=== PATIENT | female | born 1940 | race African-American/Black ===

== ENCOUNTER → 2018-10-28 | Day surgery (SDC) | payer MEDICARE, OTHER ==
[2018-10-26 15:01] LABS: Basophils # (auto) 0 uL; Eosinophils # (auto) 0.1 uL; Hemoglobin 12.4 g/dL (12.2-16.2); Lymphocytes # (auto) 1.9 uL; Monocytes % (auto) 7.1 % (0.0-12.0); Neutrophils # (auto) 2.5 uL; Nucleated Red Blood Cells % 0.1 %; Red Cell Distribution Width 17.1 % (11.8-14.3)
[2018-10-26 15:06] LABS: Basophils % (auto) 0.8 % (0.0-2.0); Eosinophils % (auto) 1.9 % (0.0-7.0); Hematocrit 38.9 % (36.0-46.0); Lymphocytes % (auto) 39.2 % (10.0-50.0); Mean Corpuscular Hemoglobin 26.5 pg (28.0-32.0); Mean Corpuscular Hgb Conc. 31.8 g/dL (32.0-36.0); Mean Corpuscular Volume 83.3 fL (80.0-100.0); Monocytes # (auto) 0.4 uL; Platelet Count (auto) 274 10^3/uL (140-450); Red Blood Cells 4.67 10^6/uL (4.0-5.20)
[2018-10-26 15:10] LABS: Urine Bacteria NONE SEEN /hpf (None Seen); Urine Blood Negative /uL (Negative); Urine Specific Gravity 1.018 (1.001-1.035); Urine WBC 2 /hpf (0 - 5)
[2018-10-26 15:19] LABS: INR 0.9 (0.9-1.15); Partial Thromboplastin Time 24.6 sec (23.78-33.04); Prothrombin Time 9.7 sec (9.27-12.13)
[2018-10-26 15:20] LABS: Albumin 3.2 g/dL (3.4-5.0); BUN/Creatinine Ratio 20.9; Calcium 8.5 mg/dL (8.5-10.1); Potassium 3.8 mmol/L (3.5-5.1)
[2018-10-26 15:23] LABS: Bilirubin, Total 0.2 mg/dL (0.2-1.0); Total Protein 7.2 g/dL (6.4-8.2)
[~2018-10-28] VITALS: Ht 157.5 cm; Wt 65.8 kg
[~2018-10-28] MED LIST: ALBUAER3 IN; BUPIVACAINE 0.75% INJ 10ML MPV SDV IJ ONE; DEXAMETHASONE SOD PHOS 10MG/1ML VIAL INJ ONE; HYDROmorphone HCL 2 MG/ML VL IV PRN; KETOROLAC TROMETH 30 MG/ML 1ML VIAL IV ONE; KETOROLAC TROMETH 30 MG/ML 1ML VIAL ONE; LABETALOL HCL 5 MG/ML 4ML SYRINGE IV PRN; MEPERIDINE HCL (50 MG/ML) 1 ML VIAL ONE; MIDAZOLAM HCL 1MG/1ML-2 ML VIAL IV PRN; MIDAZOLAM HCL 1MG/1ML-2 ML VIAL ONE; MORPHINE SULFATE 4 MG/ML SYR/VIAL IV ONE; ONDANSETRON HCL 4 MG/2 ML VIAL IV ONE; PROPOFOL 10 MG/ML 20 ML IV ONE; ceFAZolin 1GM/50ML 50 ML IV ONE; ePHEDrine SULFATE 50 MG/ML AMP IV PRN; fentaNYL CITRATE 100 MCG/2 ML VL ONE; hydrALAZINE HCL 20 MG/ML VL IV PRN
[2018-10-28 10:43] VITALS: BP 155/58
== END | disposition home or self-care (01) ==
LOC: SUR 07:13
PROVIDERS: ATTEND Podiatrist Foot & Ankle Surgery
DX: M20.12 Hallux valgus (acquired), left foot (principal); M21.612 Bunion of left foot; L90.5 Scar conditions and fibrosis of skin; M20.42 Other hammer toe(s) (acquired), left foot; J45.909 Unspecified asthma, uncomplicated; I10 Essential (primary) hypertension; Z90.49 Acquired absence of other specified parts of digestive tract; Z98.890 Other specified postprocedural states; Z79.899 Other long term (current) drug therapy; Z98.84 Bariatric surgery status
CPT/HCPCS: 14040; 28285; 28296; 36415; 73620; 80053; 81001; 85025; 85610; 85730; C1713; C1769; J0360; J0690; J1100; J1885; J2175; J2250; J2704; J3010; J3490

== ENCOUNTER 2025-04-28 12:29 | Inpatient (IN) | payer OTHER ==
[~2025-04-28] VITALS: Ht 157.5 cm; Wt 69.4 kg
[~2025-04-28 12:29] MED LIST changes: -BUPIVACAINE 0.75% INJ 10ML MPV SDV IJ ONE; -DEXAMETHASONE SOD PHOS 10MG/1ML VIAL INJ ONE; -HYDROmorphone HCL 2 MG/ML VL IV PRN; -KETOROLAC TROMETH 30 MG/ML 1ML VIAL IV ONE; -KETOROLAC TROMETH 30 MG/ML 1ML VIAL ONE; -LABETALOL HCL 5 MG/ML 4ML SYRINGE IV PRN; -MEPERIDINE HCL (50 MG/ML) 1 ML VIAL ONE; -MIDAZOLAM HCL 1MG/1ML-2 ML VIAL IV PRN; -MIDAZOLAM HCL 1MG/1ML-2 ML VIAL ONE; -MORPHINE SULFATE 4 MG/ML SYR/VIAL IV ONE; -ONDANSETRON HCL 4 MG/2 ML VIAL IV ONE; -PROPOFOL 10 MG/ML 20 ML IV ONE; -ceFAZolin 1GM/50ML 50 ML IV ONE; -ePHEDrine SULFATE 50 MG/ML AMP IV PRN; -fentaNYL CITRATE 100 MCG/2 ML VL ONE; -hydrALAZINE HCL 20 MG/ML VL IV PRN
--- NOTE | 2025-04-28 13:00 | ED.PDOC ---
GI ASSESSMENT HPI Comments This is a 84 year old female presenting to the ED with chief complaint of abdominal pain. Patient reports that she has been experiencing 8/10 lower abdominal pain with associated diarrhea and headache for the past 2 weeks. Patient relays that she saw her PCP today and was advised to come to the ED for further evaluation. Patient denies any N/V, fever, chills, dizziness, chest pain, or SOB. Chief Complaint: Abdominal Pain Time Seen by MD: 12:58 Reviewed Notes: Nurses Notes, Medications, Allergies Allergies: Coded Allergies: NO KNOWN ALLERGIES (Unverified , 10/26/18) Home Meds Reported Medications Albuterol Sulfate (VENTOLIN MDI) 90 Mcg Ih, 2 PUFF IN PRN 10/26/18 Information Source: Patient Mode of Arrival: Ambulatory Timing: Weeks Duration: Since onset Prehospital treatment: None Quality: Aching Vomitus: None Stool: Watery Severity: Moderate Recent: None Recent Hx of: None Pain Location: Suprapubic Modifying Factors: Nothing Associated sign and symptoms: Diarrhea, Abdominal Pain Past Medical History PAST MEDICAL HISTORY: COPD, HTN Surgical History: Appendectomy, , Hernia Repair, Tonsillectomy, Tubal Ligation Surgical History (Other): Cataract surgery [employer] DES[employer] History: Denies all [employer] Hx Family History Family History: Reviewed,noncontributory to illness, Family hx of Kidney rasheed Social History Smoker: Non-Smoker Alcohol: Denies ETOH Use Drugs: Denies Drug Use Lives In: Home Constitutional: denies: chills, diaphoresis, fatigue, fever, malaise, sweats, weakness, others EENTM: denies: blurred vision, double vision, ear bleeding, ear discharge, ear drainage, ear pain, ear ringing, eye pain, eye redness, hearing loss, mouth pain, mouth swelling, nasal discharge, nose bleeding, nose congestion, nose pain, photophobia, tearing, throat pain, throat swelling, voice changes, others Respiratory: denies: cough, hemoptysis, orthopnea, SOB at rest, shortness of breath, SOB with excertion, stridor, wheezing, others Cardiovascular: denies: chest pain, dizzy spells, diaphoresis, Dyspnea on exertion, edema, irregular heart beat, left arm pain, lightheadedness, palpitations, PND, syncope, others Gastrointestinal: reports: abdominal pain, diarrhea; denies: abdomen distended, blood streaked bowels, constipated, dysphagia, difficulty swallowing, hematemesis, melena, nausea, poor appetite, poor fluid intake, rectal bleeding, rectal pain, vomiting, others Genitourinary: denies: abnormal vagina bleeding, burning, dyspareunia, dysuria, flank pain, frequency, hematuria, incontinence, pain, , vagina discharge, urgency, others Neurological: reports: headache; denies: dizziness, fainting, left sided numbness, left sided weakness, numbness, paresthesia, pre-existing deficit, right sided numbness, right sided weakness, seizure, speech problems, tingling, tremors, weakness, others Musculoskeletal: denies: back pain, gout, joint pain, joint swelling, muscle pain, muscle stiffness, neck pain, others Integumetry: denies: bruises, change in color, change in hair/nails, dryness, laceration, lesions, lumps, rash, wounds, others Allergic/Immunocompromised: denies: Difficulty Healing, Frequent Infections, Hives, Itching, others Hematologic/Lymphatic: denies: anemia, blood clots, easy bleeding, easy bruising, swollen glands, others Endocrine: denies: excessive hunger, excessive sweating, excessive thirst, excessive urination, flushing, intolerance to cold, intolerance to heat, unexplained weight gain, unexplained weight loss, others Psychiatric: denies: anxiety, bipolar disorder, depression, hopeless, panic disorder, schizophrenia, sleepless, suicidal, others All Other Systems: Reviewed and Negative Physical Exam General Appearance: Moderate Distress HEENT: Normal ENT Inspection, Pharynx Normal, TMs Normal Neck: Full Range of Motion, Non-Tender, Normal, Normal Inspection Respiratory: Chest Non-Tender, Lungs Clear, No Accessory Muscle Use, No Respiratory Distress, Normal Breath Sounds Cardiovascular: No Edema, No JVD, No Murmur, No Gallop, Normal Peripheral Pulses, Regular Rate/Rhythm Breast Exam: Deferred Gastrointestinal: No Organomegaly, Non Tender, No Pulsatile Mass, Normal Bowel Sounds, Soft Genitalia: Deferred Pelvic: Deferred Rectal: Deferred Extremities: No calf tenderness, Normal capillary refill, No pedal edema Musculoskeletal : Apperance: Normal Neurologic: Alert, crystalizer operator II-XII nml as Tested, No Motor Deficits, Normal Affect, Normal Mood, No Sensory Deficits Cerebellar Function: Normal Reflexes: Normal Skin: Dry, Normal Color, Warm Lymphatic: No Adenopathy EKG EKG : Pulse Rate (adult): 62 [place]: Normal Cardiac Rhythm: NSR Block: None Hypertrophy: LAE ST: Normal Was a procedure done? Was a procedure done?: No GI differential Dx Differential Diagnosis: Gastritis/PUD, Gastroenteritis, Inflammatory BD, UTI, Electrolyte Imbalance, Food Poisoning X-Ray, Labs, Meds, VS Vital Signs Date Time Temp Pulse Resp B/P (MAP) Pulse Ox O2 Delivery O2 Flow Rate FiO2 04/28/25 14:27 98.1 51 16 191/71 (111) 97 98.1 04/28/25 14:26 51 17 191/71 04/28/25 13:00 62 04/28/25 12:46 62 04/28/25 12:33 97.9 67 20 150/55 95 97.9 Lab Test 04/28/25 13:19 Range/Units White Blood Count 5.1 4.4-10.8 10^3/uL Red Blood Count 4.53 4.0-5.20 10^6/uL Hemoglobin 12.2 12.2-16.2 g/dL Hematocrit 37.9 36.0-46.0 % Mean Corpuscular Volume 83.7 80.0-100.0 fL Mean Corpuscular Hemoglobin 26.8 L 28.0-32.0 pg Mean Corpuscular Hemoglobin Concent 32.1 32.0-36.0 g/dL Red Cell Distribution Width 16.8 H 11.8-14.3 % Platelet Count 276 140-450 10^3/uL Mean Platelet Volume 7.9 6.9-10.8 fL Neutrophils (%) (Auto) 60.1 37.0-80.0 % Lymphocytes (%) (Auto) 32.0 10.0-50.0 % Monocytes (%) (Auto) 5.5 0.0-12.0 % Eosinophils (%) (Auto) 1.6 0.0-7.0 % Basophils (%) (Auto) 0.8 0.0-2.0 % Neutrophils # (Auto) 3.1 1.6-8.6 10 ^3/uL Lymphocytes # (Auto) 1.6 0.4-5.4 10 ^3/uL Monocytes # (Auto) 0.3 0-1.3 10 ^3/uL Eosinophils # (Auto) 0.1 0-0.8 10 ^3/uL Basophils # (Auto) 0 0-0.2 10 ^3/uL Nucleated Red Blood Cells 0.0 % Sodium Level 139 136-145 mmol/L Potassium Level 3.6 3.5-5.1 mmol/L Chloride Level 105 98-107 mmol/L Carbon Dioxide Level 24 20-31 mmol/L Anion Gap 10 5-15 Blood Urea Nitrogen 10 9-23 mg/dL Creatinine 0.90 0.550-1.02 mg/dL Glomerular Filtration Rate Calc 64 >90 mL/min BUN/Creatinine Ratio 11.1 10.0-20.0 Serum Glucose 92 74-106 mg/dL Calcium Level 8.8 8.7-10.4 mg/dL Total Bilirubin 0.3 0.2-1.0 mg/dL Aspartate Amino Transferase (AST) 45 H 13-40 U/L Alanine Aminotransferase (ALT) 47 H 7-40 U/L Alkaline Phosphatase 167 H 46-116 U/L Total Protein 6.9 5.7-8.2 g/dL Albumin 4.1 3.2-4.8 g/dL Lipase 31 12-53 U/L Current Medications Medications (Trade) Dose Ordered Sig/Lito Route Start Time Stop Time Status Last Admin Ondansetron HCl (Zofran) 4 mg ONCE ONCE IV 04/28/25 13:00 04/28/25 13:01 DC 04/28/25 14:26 Morphine Sulfate 2 mg ONCE ONCE IV 04/28/25 13:00 04/28/25 13:01 DC 04/28/25 14:26 Sodium Chloride 500 ml @ 500 mls/hr Q1H ONCE IVB 04/28/25 13:00 04/28/25 13:59 DC 04/28/25 14:26 IV Hep-Lock was established The patient was given normal saline at 500 cc bolus. The patient was given Zofran 4 mg IV push for the nausea The patient was given morphine 2 mg IV push for the pain The patient's CBC is within normal limits The chemistry panel is within normal limits The liver enzymes are slightly elevated The patient is being admitted at this time. The CAT scan of the abdomen and pelvis shows: IMPRESSION: 1. No CT evidence of an acute abdominal/pelvic process. 2. Constipation. 3. Trace left pleural effusion. Small sliding hiatal hernia. Images Reviewed?: Images reviewed and evaluated by me Time of 1ST Reevaluation: 18:37 Reevaluation 1ST: Unchanged Patient Education/Counseling: Diagnosis, Treatment, Prognosis Family Education/Counseling: No Family Present SEPSIS Sepsis Screen Date sepsis recognized/suspect: Apr 28, 2025 Time Sepsis recognized/suspect: 1236 Recent Procedure: No On Antibiotic Therapy: No Respiratory Rate >20: No Heart Rate >90: No Temp<36 C (96.8 F) or >38.3 C: No SBP <90 or MAP <65 mmHG: No New Acute Mental Status Change: No Is the patient on CPAP, BIPAP,: No Physician Orders Urinalysis (04/28/25 12:57) Ct Ab Pel Wo Con-No Oral Or Iv (04/28/25 12:57) Heplock Iv (04/28/25 12:57) Asw Specialist (04/28/25 12:57) Blood Pressure (04/28/25 12:57) Pulse Oximetry (04/28/25 12:57) Vital Signs Date Time Temp Pulse Resp B/P (MAP) Pulse Ox O2 Delivery O2 Flow Rate FiO2 04/28/25 14:27 98.1 51 16 191/71 (111) 97 98.1 04/28/25 14:26 51 17 191/71 04/28/25 13:00 62 04/28/25 12:46 62 04/28/25 12:33 97.9 67 20 150/55 95 97.9 Laboratory Tests Test 04/28/25 13:19 White Blood Count 5.1 10^3/uL (4.4-10.8) Medications Medications Dose Ordered Sig/Lito Route Start Time Stop Time Status Last Admin Dose Admin Morphine Sulfate 2 mg ONCE ONCE IV 04/28/25 13:00 04/28/25 13:01 DC 04/28/25 14:26 Ondansetron HCl 4 mg ONCE ONCE IV 04/28/25 13:00 04/28/25 13:01 DC 04/28/25 14:26 Sodium Chloride 500 ml @ 500 mls/hr Q1H ONCE IVB 04/28/25 13:00 04/28/25 13:59 DC 04/28/25 14:26 Departure 1 Departure Time of Disposition: 17:49 Impression: Primary Impression: Intractable abdominal pain Disposition: 09 ADMITTED INPATIENT Admit to: Med Surg Condition: Fair Critical Care Note Critical Care Time?: No Stability Stability form required: Yes Unstable for transfer: ED Physician Assesment (Clinical assesment) Heart Score Heart Score: Heart Score Response (Comments) Value History N/A 0 EKG N/A 0 Age N/A 0 Risk Factors N/A 0 Troponin N/A 0 Total 0 I personally scribed for YIN NÚÑEZ MD ([email or web address]) on 04/28/25 at 13:00. Electronically submitted by Fortunato Cesar ([email or web address]). I personally scribed for YIN NÚÑEZ MD ([email or web address]) on 04/28/25 at 13:00. Electronically submitted by Fortunato Cesar ([email or web address]). YIN NÚÑEZ MD Apr 28, 2025 13:00
[2025-04-28 13:36] LABS: Hematocrit 37.9 % (36.0-46.0); Hemoglobin 12.2 g/dL (12.2-16.2); Mean Corpuscular Hemoglobin 26.8 pg (28.0-32.0); Mean Corpuscular Volume 83.7 fL (80.0-100.0); Nucleated Red Blood Cells % 0.0 %
[2025-04-28 13:53] LABS: Alanine Aminotransferase 47 U/L (7-40); Albumin 4.1 g/dL (3.2-4.8); Alkaline Phosphatase 167 U/L (46-116); Anion Gap 10 (5-15); BUN/Creatinine Ratio 11.1 (10.0-20.0); Blood Urea Nitrogen 10 mg/dL (9-23); Calcium 8.8 mg/dL (8.7-10.4); Carbon Dioxide 24 mmol/L (20-31); Chloride 105 mmol/L (98-107); Glucose 92 mg/dL (74-106); Potassium 3.6 mmol/L (3.5-5.1); Sodium 139 mmol/L (136-145); Total Protein 6.9 g/dL (5.7-8.2)
[2025-04-28 13:54] LABS: Bilirubin, Total 0.3 mg/dL (0.2-1.0)
--- NOTE | 2025-04-28 14:14 | DVH ---
EXAM: CT CT AB PEL WO CON-NO ORAL OR IV INDICATION: pain TECHNIQUE: Volumetric multidetector CT images of the abdomen and pelvis were obtained without contras t. All CT scans at this facility use dose modulation, iterative reconstruction, and/or weight based d osing when appropriate to reduce radiation dose to as low as reasonably achievable. COMPARISON: None FINDINGS: [LOWER CHEST]: Trace left pleural effusion. The cardiac size is normal without pericardial effusion. [LIVER]: Normal hepatic size without suspicious focal lesion. [GALLBLADDER AND BILIARY TREE]: Surgically absent. [SPLEEN]: Unremarkable. [PANCREAS]: Unremarkable. [ADRENAL GLANDS]: Unremarkable [KIDNEYS]: No hydronephrosis. No nephroureterolithiasis. 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 No imaging follow-up required. [BLADDER]: Unremarkable for the degree distention. [REPRODUCTIVE ORGANS]: Unremarkable. [BOWEL/MESENTERY]: Small sliding hiatal hernia with postoperative changes to the stomach No CT eviden ce of bowel obstruction. Multiple loops of bowel adhered to the anterior abdominal wall, which may be related to adhesions. Correlate for constipation given mild stool burden. [ASCITES]: Absent [LYMPHADENOPATHY]: No pathologically enlarged lymph nodes by CT size criteria [VASCULATURE]: No aneurysmal dilatation. [ABDOMINAL WALL]: Postoperative changes to the anterior abdominal wall [MUSCULOSKELETAL]: No acute fracture or aggressive focal osseous lesion. Multifocal degenerative pedro ge of the visualized spine. IMPRESSION: 1. No CT evidence of an acute abdominal/pelvic process. 2. Constipation. 3. Trace left pleural effusion. Small sliding hiatal hernia.
[2025-04-28] MEDS: ONDANSETRON HCL 4 MG/2 ML VIAL IV ONE ×2 (14:26→20:44)
[2025-04-28] MEDS: SODIUM CHLORIDE 0.9% 500 ML IVB ONE (14:26)
[2025-04-28] MEDS: MORPHINE SULFATE 4 MG/ML SYR/VIAL IV ONE (14:26)
[2025-04-28 14:35] LABS: Lipase 31 U/L (12-53)
--- NOTE | 2025-04-28 16:15 | ECG ---
[facility] Test Date: 2025-04-28 Test Time: 12:46:49 Pat Name: ROSI INTERIANO Department: ED Room: 0249T Gender: F Director Of Orthopedics: DR DIEGO: 1940 Requested By: YIN NÚÑEZ Order Number: [id number] Reading MD: Campbell Albrecht Measurements Intervals [place] Rate: 62 P: 56 DE: 147 QRS: 16 QRSD: 101 T: 59 QT: 477 QTc: 485 Interpretive Statements Sinus rhythm Probable left atrial enlargement Abnormal R-wave progression, early transition Electronically Signed On 05-03-2025 19:17:35 PDT by Campbell Albrecht Please click the below link to view image of tracing.
[2025-04-28] MEDS: MORPHINE SULFATE INJ 2 MG/ml SYRG IV ONE (20:46)
[2025-04-28 20:52] VITALS: PULSE 50; RESP 16; O2SAT 96
[2025-04-28 21:20] LABS: Urine Protein, UAD Negative (Negative)
[2025-04-29] VITALS (8 sets, daily range): BP systolic 109–150; BP diastolic 49–67; PULSE 44–63; RESP 16–18; TEMP 97.1–98.7; O2SAT 95–98
[2025-04-29] MEDS ORDERED: NITROGLYCERIN 0.4 MG SL TAB SL PRN (00:30)
[2025-04-29] MEDS ORDERED: HYDROcodone-ACET 5/325MG TAB PO PRN (00:30)
[2025-04-29] MEDS ORDERED: MORPHINE SULFATE INJ 2 MG/ml SYRG IV PRN ×2 (00:30)
[2025-04-29] MEDS ORDERED: ONDANSETRON HCL 4 MG/2 ML VIAL IV PRN (00:30)
[2025-04-29] MEDS ORDERED: DOCUSATE SOD 100 MG CAP PO PRN (00:30)
[2025-04-29] MEDS ORDERED: hydrALAZINE HCL 20 MG/ML VL IV PRN (00:30)
--- NOTE | 2025-04-29 00:39 | DVHHP2 ---
History of Present Illness Reason for Visit: Acute abdominal pain History of Present Illness The patient is a 84-year-old female with past medical history of COPD and hypertension who presented to [facility] ED with complaint of acute abdominal pain for the past 2 weeks. Patient reports she has been experiencing l ower abdominal pain associated with diarrhea, headache, rating pain 8/10 numeric scale. Patient states that she saw her PCP today and was advised to come to the ED for further evaluation. Patient was seen and evaluated in the ED, laboratory data shows WBC 5.1, platelets 276, sodium 139, potassium 3.6, BUN 10, creatinine 0.90, glucose 92, calcium 8.8, lipase 31, AST 45, ALT 47, blood pressure 191/71 trending down to 139/55, heart rate 50, temperature 97.6 F, O2 saturation 96% on room air. Urinalysis positive for urinary tract infection. Abdomen/pelvis CT revealing constipation, no evidence of acute abdominal/pelvic process. Please s ee medication orders section in the computer. On my assessment, patient denied chest pain, no headache, no dizziness, no diaphoresis, abdominal pain at this moment, no nausea, no vomiting, no fever, no chills. Patient was admitted for further evaluation and medical management. Past Medical History COPD, HTN Past Surgical History Appendectomy, , Hernia Repair, Tonsillectomy, Tubal Ligation, Cataract surgery Family History Reviewed, noncontributory to the management of this case. Past Social History The patient lives at home, denies smoking, alcohol or illicit drugs abuse. Review of Systems Constitutional: Yes: Weakness; No: Fever, Chills, Sweats, Malaise, Other Eyes: No: Pain, Vision change, Conjunctivae inflammation, Eyelid inflammation, Other, Redness ENT: No: Ear pain, Ear discharge, Nose pain, Nose discharge, Nose congestion, Mouth pain, Mouth swelling, Throat pain, Throat swelling, Other Respiratory: No: Cough, Dry, Shortness of breath, SOB with excertion, Wheezing, Hemoptysis, Pleuritic Pain, Sputum, Wheezing, Other Cardiovascular: No: Chest Pain, Palpitations, Orthopnea, Paroxysmal Noc. Dyspnea, Edema, Lt Headedness, Other Gastrointestinal: Abdominal Pain, Diarrhea, Constipation; No: Nausea, Vomiting, Melena, Hematochezia, Other Genitourinary: No Dysuria, No Frequency, No Incontinence, No Hematuria, No Retention, No Other Musculoskeletal: No: other, neck pain, shoulder pain, arm pain, back pain, hand pain, leg pain, foot pain Skin: No: Rash, Lesions, Jaundice, Bruising, Other Neurological: No: Weakness, Numbness, Incoordination, Change in speech, Confusion, Seizures, Other Allergies: Coded Allergies: NO KNOWN ALLERGIES (Unverified , 10/26/18) Exam Vital Signs Vital Signs Date Time Temp Pulse Resp B/P (MAP) Pulse Ox O2 Delivery O2 Flow Rate FiO2 04/28/25 20:52 50 16 96 Room Air* 0 21 04/28/25 20:46 175/74 04/28/25 20:42 97.6 97.6 General Appearance: Alert, Oriented X3, Cooperative, No acute distress HEENT: Atraumatic, PERRLA, EOMI, Mucous membr. moist/pink Respiratory: Clear to auscultation, Normal air movement Cardiovascular: Regular rate, Normal S1, Normal S2, No murmurs Abdominal: Normal bowel sounds, Soft, No hepatospenomegaly, No masses, Other (Reports tenderness) Extremities: No clubbing, No cyanosis, No edema, Normal pulses, No tenderness/swelling Skin: No rashes, No breakdown, No significant lesion Neuro: Normal speech, Normal tone, Sensation intact, Cranial nerves 3-12 NL, Reflexes 2+, Other (Generalized weakness) Psych/Mental Status: Mental status NL, Mood NL Labs/Xrays Labs Test 04/28/25 20:15 04/28/25 13:19 Range/Units Urine Color Light-yellow Yellow Urine Clarity Clear Clear Urine pH 5.0 5.0-9.0 Urine Specific [place] 1.012 1.001-1.035 Urine Protein Negative Negative Urine Ketones Negative Negative Urine Blood Negative Negative /uL Urine Nitrite Negative Negative Urine Bilirubin Negative Negative Urine Urobilinogen Normal Negative mg/dL Urine Leukocyte Esterase 2+ Negative /uL Urine RBC 1 0 - 4 /hpf Urine Microscopic WBC 13 H 0-5 /HPF Urine Squamous Epithelial Cells Few <5 /hpf Urine Bacteria None seen None Seen /hpf Urine Glucose Normal Normal mg/dL White Blood Count 5.1 4.4-10.8 10^3/uL Red Blood Count 4.53 4.0-5.20 10^6/uL Hemoglobin 12.2 12.2-16.2 g/dL Hematocrit 37.9 36.0-46.0 % Mean Corpuscular Volume 83.7 80.0-100.0 fL Mean Corpuscular Hemoglobin 26.8 L 28.0-32.0 pg Mean Corpuscular Hemoglobin Concent 32.1 32.0-36.0 g/dL Red Cell Distribution Width 16.8 H 11.8-14.3 % Platelet Count 276 140-450 10^3/uL Mean Platelet Volume 7.9 6.9-10.8 fL Neutrophils (%) (Auto) 60.1 37.0-80.0 % Lymphocytes (%) (Auto) 32.0 10.0-50.0 % Monocytes (%) (Auto) 5.5 0.0-12.0 % Eosinophils (%) (Auto) 1.6 0.0-7.0 % Basophils (%) (Auto) 0.8 0.0-2.0 % Neutrophils # (Auto) 3.1 1.6-8.6 10 ^3/uL Lymphocytes # (Auto) 1.6 0.4-5.4 10 ^3/uL Monocytes # (Auto) 0.3 0-1.3 10 ^3/uL Eosinophils # (Auto) 0.1 0-0.8 10 ^3/uL Basophils # (Auto) 0 0-0.2 10 ^3/uL Nucleated Red Blood Cells 0.0 % Sodium Level 139 136-145 mmol/L Potassium Level 3.6 3.5-5.1 mmol/L Chloride Level 105 98-107 mmol/L Carbon Dioxide Level 24 20-31 mmol/L Anion Gap 10 5-15 Blood Urea Nitrogen 10 9-23 mg/dL Creatinine 0.90 0.550-1.02 mg/dL Glomerular Filtration Rate Calc 64 >90 mL/min BUN/Creatinine Ratio 11.1 10.0-20.0 Serum Glucose 92 74-106 mg/dL Calcium Level 8.8 8.7-10.4 mg/dL Total Bilirubin 0.3 0.2-1.0 mg/dL Aspartate Amino Transferase (AST) 45 H 13-40 U/L Alanine Aminotransferase (ALT) 47 H 7-40 U/L Alkaline Phosphatase 167 H 46-116 U/L Total Protein 6.9 5.7-8.2 g/dL Albumin 4.1 3.2-4.8 g/dL Lipase 31 12-53 U/L PATIENT: ROSI INTERIANO ACCT: [id number] UNIT: [id number] : 1940 LOC: ER ROOM / BED: / AGE / SEX: 84 / F ADM STATUS: REG ER SERVICE 1257 ORDERING PHYSICIAN: YIN NÚÑEZ MD PROCEDURE(s): ABPL - CT AB PEL WO CON-NO ORAL OR IV REASON: pain ORDER NUMBER(s): [id number], ACCESSION NUMBER(s): [id number] EXAM: CT CT AB PEL WO CON-NO ORAL OR IV INDICATION: pain TECHNIQUE: Volumetric multidetector CT images of the abdomen and pelvis were obtained without contrast. All CT scans at this facility use dose modulation, iterative reconstruction, and/or weight based dosing when appropriate to reduce radiation dose to as low as reasonably achievable. COMPARISON: None FINDINGS: [LOWER CHEST]: Trace left pleural effusion. The cardiac size is normal without pericardial effusion. [LIVER]: Normal hepatic size without suspicious focal lesion. [GALLBLADDER AND BILIARY TREE]: Surgically absent. [SPLEEN]: Unremarkable. [PANCREAS]: Unremarkable. [ADRENAL GLANDS]: Unremarkable [KIDNEYS]: No hydronephrosis. No nephro-ureterolithiasis. Benign appearing renal cysts, compatible with Bosniak type I cyst. No imaging follow-up required. [BLADDER]: Unremarkable for the degree distention. [REPRODUCTIVE ORGANS]: Unremarkable. [BOWEL/MESENTERY]: Small sliding hiatal hernia with postoperative changes to the stomach No CT evidence of bowel obstruction. Multiple loops of bowel adhered to the anterior abdominal wall, which may be related to adhesions. Correlate for constipation given mild stool burden. [ASCITES]: Absent [LYMPHADENOPATHY]: No pathologically enlarged lymph nodes by CT size criteria [VASCULATURE]: No aneurysmal dilatation. [ABDOMINAL WALL]: Postoperative changes to the anterior abdominal wall [MUSCULOSKELETAL]: No acute fracture or aggressive focal osseous lesion. Multifocal degenerative change of the visualized spine. IMPRESSION: 1. No CT evidence of an acute abdominal/pelvic process. 2. Constipation. 3. Trace left pleural effusion. Small sliding hiatal hernia. SEPSIS Sepsis Screen Date sepsis recognized/suspect: Apr 28, 2025 Time Sepsis recognized/suspect: 123 Recent Procedure: No On Antibiotic Therapy: No Respiratory Rate >20: No Heart Rate >90: No Temp<36 C (96.8 F) or >38.3 C: No SBP <90 or MAP <65 mmHG: No New Acute Mental Status Change: No Is the patient on CPAP, BIPAP,: No Physician Orders Complete Blood Count (04/29/25 04:00) Comprehensive Metabolic Panel (04/29/25 04:00) Pantoprazole (Protonix) (04/29/25 10:00) Pantoprazole (Protonix) (04/29/25 00:30) Ibuprofen Tablet (Motrin Tablet) (04/29/25 00:30) Ceftriaxone Ivpb Rocephin (04/29/25 09:00) Ceftriaxone Ivpb Rocephin (04/29/25:30) Urine Bacterial Culture (04/29/25:30) Amlodipine Tablet (Norvasc Tablet) (04/29/25 10:00) Hydralazine Injection (Apresoline Inject (04/29/25 00:30) Admit (04/29/25 00:30) Allergies (04/29/25 00:30) Code Status (04/29/25 00:30) 0.9% Ns 1000 Ml (04/29/25 00:30) Oxygen Per Hour (04/29/25 00:30) Hydrocodone-Acet 5/325mg Tab (Staples 5/32 (04/29/25 00:30) Ondansetron Hcl (Zofran) (04/29/25 00:30) Docusate Sodium Capsule (Colace Capsule) (04/29/25 00:30) Complete Blood Count (04/30/25 04:00) Comprehensive Metabolic Panel (04/30/25 04:00) Condition: Serious (04/29/25 00:30) Clear Liq Diet (04/29/25 Breakfast) Bedrest With Bathroom Privileg (04/29/25:) Morphine Sulfate Injection (04/29/25 00:30) Sequential Compression Device (04/29/25 ) Nitroglycerin Sublingual (Ntrostat Subli (04/29/25 00:30) Morphine Sulfate Injection (04/29/25 00:30) Stat Ekg For Chest Pain (04/29/25 00:30) Notify Md Of Changes From Base (04/29/25 00:30) Grader Green Meat For 24 Hours (04/29/25 00:30) Emergency Dysrhythmia Protocol (04/29/25 00:30) Rhythm Strips Once Every Shift (04/29/25 00:30) Oxygen By Nasal Cannula (04/29/25 00:30) Vital Signs Date Time Temp Pulse Resp B/P (MAP) Pulse Ox O2 Delivery O2 Flow Rate FiO2 04/28/25 20:52 50 16 96 Room Air* 0 21 04/28/25 20:46 50 16 175/74 04/28/25 20:42 97.6 50 16 175/74 (107) 99 97.6 04/28/25 20:41 97.6 50 17 175/74 (107) 99 97.6 Laboratory Tests Test 04/28/25 13:19 White Blood Count 5.1 10^3/uL (4.4-10.8) Medications Medications Dose Ordered Sig/Lito Route Start Time Stop Time Status Last Admin Dose Admin Morphine Sulfate 2 mg ONCE ONCE IV 04/28/25 13:00 04/28/25 13:01 DC 04/28/25 14:26 2 MG Morphine Sulfate 2 mg ONCE ONCE IV 04/28/25 20:45 04/28/25 20:46 DC 04/28/25 20:46 2 MG Ondansetron HCl 4 mg ONCE ONCE IV 04/28/25 13:00 04/28/25 13:01 DC 04/28/25 14:26 4 MG Ondansetron HCl 4 mg ONCE ONCE IV 04/28/25 20:45 04/28/25 20:46 DC 04/28/25 20:44 4 MG Sodium Chloride 500 ml @ 500 mls/hr Q1H ONCE IVB 04/28/25 13:00 04/28/25 13:59 DC 04/28/25 14:26 500 MLS/HR Assessment/Plan Assessment/Plan Intractable abdominal pain Elevated liver enzymes Bradycardia Hypertensive urgency Urinary tract infection Generalized weakness Plan 1. Admit to telemetry units 2. Breathing treatment 3. Pain control management 4. IV antibiotic management 5. Management of fluids and electrolytes 6. Consultation for hospitalist 7. Diagnostic test head CT 8. DVT prophylaxis-on SCDs 9. Repeat labs CBC, CMP in a.m. 10. Home medication reviewed and reconciled 11. Continue with current medical management 12. Treatment plan discussed with patient and RN. Patient verbalized understanding. Plan discussed with: Patient, Other (RN) My Orders Orders - SUSAN HAHN DNP Procedure Category Date Status Time Complete Blood Count LAB 04/29/25 Transmitted 04:00 Comprehensive LAB 04/29/25 Transmitted Metabolic Panel 04:00 Pantoprazole PHA 04/29/25 Transmitted (Protonix) 10:00 Pantoprazole PHA 04/29/25 Transmitted (Protonix) 00:30 Ibuprofen Tablet PHA 04/29/25 Transmitted (Motrin Tablet) 00:30 Ceftriaxone Ivpb PHA 04/29/25 Transmitted Rocephin 09:00 Ceftriaxone Ivpb PHA 04/29/25 Transmitted Rocephin 00:30 Urine Bacterial YESIKA 04/29/25 Transmitted Culture 00:30 Amlodipine Tablet PHA 04/29/25 Transmitted (Norvasc Tablet) 10:00 Hydralazine Injection PHA 04/29/25 Transmitted (Apresoline Inject 00:30 Admit ADMIT 04/29/25 Transmitted 00:30 Allergies KEEGAN 04/29/25 Transmitted 00:30 Code Status CODE 04/29/25 Transmitted 00:30 0.9% Ns 1000 Ml PHA 04/29/25 Transmitted 00:30 Oxygen Per Hour RT 04/29/25 Transmitted 00:30 Hydrocodone-Acet PHA 04/29/25 Transmitted 5/325mg Tab (Staples 00:30 Ondansetron Hcl PHA 04/29/25 Transmitted (Zofran) 00:30 Docusate Sodium PHA 04/29/25 Transmitted Capsule (Colace 00:30 Complete Blood Count LAB 04/30/25 Verified 04:00 Comprehensive LAB 04/30/25 Verified Metabolic Panel 04:00 Condition: Serious KEEGAN 04/29/25 Transmitted 00:30 Clear Liq Diet DIET 04/29/25 Verified Breakfast Bedrest With Bathroom KEEGAN 04/29/25 Verified Privileg 00:30 Morphine Sulfate PHA 04/29/25 Verified Injection 00:30 Sequential KEEGAN 04/29/25 Verified Compression Device Nitroglycerin PHA 04/29/25 Verified Sublingual (Ntrostat 00:30 Morphine Sulfate PHA 04/29/25 Verified Injection 00:30 Stat Ekg For Chest KEEGAN 04/29/25 Verified Pain 00:30 Notify Md Of Changes KEEGAN 04/29/25 Verified From Base 00:30 Grader Green Meat For KEEGAN 04/29/25 Verified 24 Hours 00:30 Emergency Dysrhythmia [facility] 04/29/25 Verified Protocol 00:30 Rhythm Strips Once [facility] 04/29/25 Verified Every Shift 00:30 Oxygen By Nasal RT 04/29/25 Verified Cannula 00:30 Problem List: (1) Intractable abdominal pain (2) Elevated liver enzymes (3) Bradycardia (4) Hypertensive urgency (5) Urinary tract infection (6) Generalized weakness Date of Service: Apr 29, 2025 Billing Provider: SUSAN HAHN DNP Common Visit Codes: [id number] INP/OBS CARE (HIGH) SUSAN HAHN DNP Apr 29, 2025 00:39
[2025-04-29] MEDS: SODIUM CHLORIDE 0.9% 1,000 ML IV SCH (02:40)
[2025-04-29] MEDS: PANTOPRAZOLE 40 MG/10 ML VIAL INJ IV ONE (02:40)
[2025-04-29] MEDS: IBUPROFEN 600 MG TAB PO PRN (06:33)
[2025-04-29] MEDS: PANTOPRAZOLE 40 MG/10 ML VIAL INJ IV SCH (10:04)
[2025-04-29 10:36] LABS: Hematocrit 37.2 % (36.0-46.0); Hemoglobin 11.8 g/dL (12.2-16.2); Mean Corpuscular Hemoglobin 26.9 pg (28.0-32.0); Mean Corpuscular Volume 85.2 fL (80.0-100.0); Nucleated Red Blood Cells % 0.1 %
[2025-04-29 10:57] LABS: Alanine Aminotransferase 40 U/L (7-40); Albumin 3.7 g/dL (3.2-4.8); Anion Gap 12 (5-15); BUN/Creatinine Ratio 13.0 (10.0-20.0); Bilirubin, Total 0.3 mg/dL (0.2-1.0); Blood Urea Nitrogen 12 mg/dL (9-23); Calcium 8.8 mg/dL (8.7-10.4); Carbon Dioxide 22 mmol/L (20-31); Chloride 107 mmol/L (98-107); Potassium 4.2 mmol/L (3.5-5.1); Sodium 141 mmol/L (136-145); Total Protein 6.0 g/dL (5.7-8.2)
[2025-04-29 10:59] LABS: Alkaline Phosphatase 159 U/L (46-116); Glucose 124 mg/dL (74-106)
--- NOTE | 2025-04-29 12:41 | DVHPN2 ---
Reviewed: Care Plan, H&P, Labs, Medications, Previous Orders, Radiology Changes from previous H/P or p: No Changes Eyes: No Pain, No Vision change, No Conjunctivae inflammation, No Eyelid inflammation, No Other, No Redness ENT: No Ear pain, No Ear discharge, No Nose pain, No Nose discharge, No Nose congestion, No Mouth pain, No Mouth swelling, No Throat pain, No Throat swelling, No Other Cardiovascular: No Chest Pain, No Palpitations, No Orthopnea, No Paroxysmal Noc. Dyspnea, No Edema, No Lt Headedness, No Other Respiratory: No Cough, No Dry, No Shortness of breath, No SOB with excertion, No Wheezing, No Hemoptysis, No Pleuritic Pain, No Sputum, No Other Gastrointestinal: No Nausea, No Vomiting; Abdominal Pain, Diarrhea, C onstipation; No Melena, No Hematochezia, No Other Genitourinary: No Dysuria, No Frequency, No Incontinence, No Hematuria, No Retention, No Other Musculoskeletal: No other, No neck pain, No shoulder pain, No arm pain, No back pain, No hand pain, No leg pain, No foot pain Skin: No Rash, No Lesions, No Jaundice, No Bruising, No Other Objective Vitals Vital Signs Date Time Temp Pulse Resp B/P (MAP) Pulse Ox O2 Delivery O2 Flow Rate FiO2 04/29/25 10:04 140/67 04/29/25 09:00 97.5 60 16 96 97.5 04/29/25 08:00 Room Air* 0 21 Intake/Output Intake and Output 04/29/25 07:00 Intake Total 240 ml Balance 240 ml Intake Oral 240 ml # Voids 2 Medications Current Medications Medications Dose Ordered Sig/Lito Route Start Time Stop Time Status Last Admin Dose Admin Pantoprazole Sodium 40 mg DAILY IV 04/29/25 10:00 04/29/25 10:04 40 MG Ibuprofen 600 mg Q6HP PRN PO 04/29/25 00:30 04/29/25 06:33 600 MG Ceftriaxone Sodium 50 ml @ 100 mls/hr DAILY@09 IV 04/29/25 09:00 04/29/25 10:05 100 MLS/HR Amlodipine Besylate 5 mg DAILY PO 04/29/25 10:00 04/29/25 10:04 5 MG Hydralazine HCl 10 mg Q6HP PRN IV 04/29/25 00:30 Sodium Chloride 1,000 ml @ 60 mls/hr [id number] IV 04/29/25 00:30 04/29/25 02:40 60 MLS/HR Acetaminophen/ Hydrocodone Bitart 1 tab Q4HP PRN PO 04/29/25 00:30 Ondansetron HCl 4 mg Q4HP PRN IV 04/29/25 00:30 Docusate Sodium 100 mg BIDPRN PRN PO 04/29/25 00:30 Morphine Sulfate 2 mg Q4HPRN PRN IV 04/29/25 00:30 Nitroglycerin 0.4 mg Q5MINP PRN SL 04/29/25 00:30 Morphine Sulfate 2 mg Q30M PRN IV 04/29/25 00:30 Laboratory Results Laboratory Tests 04/29/25 09:50 Chemistry Test 04/28/25 13:19 04/29/25 09:50 Albumin 4.1 g/dL (3.2-4.8) 3.7 g/dL (3.2-4.8) Calcium Level 8.8 mg/dL (8.7-10.4) 8.8 mg/dL (8.7-10.4) Total Protein 6.9 g/dL (5.7-8.2) 6.0 g/dL (5.7-8.2) Lipid panel Test 04/28/25 13:19 Lipase 31 U/L (12-53) LFT Test 04/28/25 13:19 04/29/25 09:50 Alanine Aminotransferase (ALT) 47 U/L (7-40) H 40 U/L (7-40) Alkaline Phosphatase 167 U/L (46-116) H 159 U/L (46-116) H Aspartate Amino Transferase (AST) 45 U/L (13-40) H 35 U/L (13-40) Total Bilirubin 0.3 mg/dL (0.2-1.0) 0.3 mg/dL (0.2-1.0) Urinalysis Test 04/28/25 20:15 Urine Color Light-yellow (Yellow) Urine Clarity Clear (Clear) Urine pH 5.0 (5.0-9.0) Urine Specific [place] 1.012 (1.001-1.035) Urine Protein Negative (Negative) Urine Ketones Negative (Negative) Urine Blood Negative /uL (Negative) Urine Nitrite Negative (Negative) Urine Bilirubin Negative (Negative) Urine Urobilinogen Normal mg/dL (Negative) Urine Leukocyte Esterase 2+ /uL (Negative) Urine RBC 1 /hpf (0 - 4) Urine Microscopic WBC 13 /HPF (0-5) H Urine Squamous Epithelial Cells Few /hpf (<5) Urine Bacteria None seen /hpf (None Seen) Urine Glucose Normal mg/dL (Normal) Labs and/or images reviewed: Labs reviewed by me, Image(s) reviewed by me Assessment/Plan Assessment/Plan Intractable abdominal pain: CT abdomen pelvis without contrast negative labs normal Slightly elevated Elevated liver enzymes UTI: Urine cultures Rocephin Bradycardia Hypertensive urgency blood pressure medications Generalized weakness Plan discussed with: Patient Date of Service: Apr 29, 2025 Billing Provider: LIZBETH WELLS MD Common Visit Codes: [id number] INP/OBS CARE(HIGH) LIZBETH WELLS MD Apr 29, 2025 12:41
[2025-04-30 01:00] VITALS: BP 143/86; PULSE 56; RESP 16; TEMP 97.9; O2SAT 98
[2025-04-30 05:00] VITALS: BP 113/61; PULSE 56; RESP 15; TEMP 97.9; O2SAT 97
[2025-04-30 07:48] LABS: Hematocrit 36.4 % (36.0-46.0); Hemoglobin 11.9 g/dL (12.2-16.2); Mean Corpuscular Hemoglobin 26.9 pg (28.0-32.0); Mean Corpuscular Volume 82.2 fL (80.0-100.0); Nucleated Red Blood Cells % 0.1 %
[2025-04-30 08:00] VITALS: PULSE 52; PULSE 56; RESP 20; O2SAT 95
[2025-04-30 08:05] LABS: Alanine Aminotransferase 33 U/L (7-40); Anion Gap 10 (5-15); BUN/Creatinine Ratio 6.6 (10.0-20.0); Calcium 8.8 mg/dL (8.7-10.4); Carbon Dioxide 24 mmol/L (20-31); Glucose 84 mg/dL (74-106); Potassium 4.2 mmol/L (3.5-5.1); Sodium 144 mmol/L (136-145)
[2025-04-30 08:06] LABS: Total Protein 6.3 g/dL (5.7-8.2)
[2025-04-30 08:07] LABS: Albumin 3.7 g/dL (3.2-4.8)
[2025-04-30 08:10] LABS: Alkaline Phosphatase 157 U/L (46-116); Bilirubin, Total 0.2 mg/dL (0.2-1.0); Blood Urea Nitrogen 5 mg/dL (9-23); Chloride 110 mmol/L (98-107)
--- NOTE | 2025-04-30 08:39 | DVHPN2 ---
Reviewed: Care Plan, H&P, Labs, Medications, Previous Orders, Radiology Changes from previous H/P or p: No Changes Eyes: No Pain, No Vision change, No Conjunctivae inflammation, No Eyelid inflammation, No Other, No Redness ENT: No Ear pain, No Ear discharge, No Nose pain, No Nose discharge, No Nose congestion, No Mouth pain, No Mouth swelling, No Throat pain, No Throat swelling, No Other Cardiovascular: No Chest Pain, No Palpitations, No Orthopnea, No Paroxysmal Noc. Dyspnea, No Edema, No Lt Headedness, No Other Respiratory: No Cough, No Dry, No Shortness of breath, No SOB with excertion, No Wheezing, No Hemoptysis, No Pleuritic Pain, No Sputum, No Other Gastrointestinal: No Nausea, No Vomiting; Abdominal Pain, Diarrhea, C onstipation; No Melena, No Hematochezia, No Other Genitourinary: No Dysuria, No Frequency, No Incontinence, No Hematuria, No Retention, No Other Musculoskeletal: No other, No neck pain, No shoulder pain, No arm pain, No back pain, No hand pain, No leg pain, No foot pain Skin: No Rash, No Lesions, No Jaundice, No Bruising, No Other Objective Vitals Vital Signs Date Time Temp Pulse Resp B/P (MAP) Pulse Ox O2 Delivery O2 Flow Rate FiO2 04/30/25 05:00 97.9 56 15 113/61 (78) 97 97.9 04/29/25 20:00 Room Air* 0 21 Intake/Output Intake and Output 04/30/25 07:00 Intake Total 2810 ml Balance 2810 ml Intake Oral 1810 ml IV Total 1000 ml # Voids 9 Medications Current Medications Medications Dose Ordered Sig/Lito Route Start Time Stop Time Status Last Admin Dose Admin Pantoprazole Sodium 40 mg DAILY IV 04/29/25 10:00 04/29/25 10:04 40 MG Ibuprofen 600 mg Q6HP PRN PO 04/29/25 00:30 04/29/25 22:37 600 MG Ceftriaxone Sodium 50 ml @ 100 mls/hr DAILY@09 IV 04/29/25 09:00 04/29/25 10:05 100 MLS/HR Amlodipine Besylate 5 mg DAILY PO 04/29/25 10:00 04/29/25 10:04 5 MG Hydralazine HCl 10 mg Q6HP PRN IV 04/29/25 00:30 Sodium Chloride 1,000 ml @ 60 mls/hr [id number] IV 04/29/25 00:30 04/29/25 22:36 60 MLS/HR Acetaminophen/ Hydrocodone Bitart 1 tab Q4HP PRN PO 04/29/25 00:30 Ondansetron HCl 4 mg Q4HP PRN IV 04/29/25 00:30 Docusate Sodium 100 mg BIDPRN PRN PO 04/29/25 00:30 Morphine Sulfate 2 mg Q4HPRN PRN IV 04/29/25 00:30 Nitroglycerin 0.4 mg Q5MINP PRN SL 04/29/25 00:30 Morphine Sulfate 2 mg Q30M PRN IV 04/29/25 00:30 Laboratory Results Laboratory Tests 04/30/25 07:22 Chemistry Test 04/29/25 09:50 04/30/25 07:22 Albumin 3.7 g/dL (3.2-4.8) 3.7 g/dL (3.2-4.8) Calcium Level 8.8 mg/dL (8.7-10.4) 8.8 mg/dL (8.7-10.4) Total Protein 6.0 g/dL (5.7-8.2) 6.3 g/dL (5.7-8.2) LFT Test 04/29/25 09:50 04/30/25 07:22 Alanine Aminotransferase (ALT) 40 U/L (7-40) 33 U/L (7-40) Alkaline Phosphatase 159 U/L (46-116) H 157 U/L (46-116) H Aspartate Amino Transferase (AST) 35 U/L (13-40) 31 U/L (13-40) Total Bilirubin 0.3 mg/dL (0.2-1.0) 0.2 mg/dL (0.2-1.0) Urinalysis Test 04/28/25 20:15 Urine Color Light-yellow (Yellow) Urine Clarity Clear (Clear) Urine pH 5.0 (5.0-9.0) Urine Specific [place] 1.012 (1.001-1.035) Urine Protein Negative (Negative) Urine Ketones Negative (Negative) Urine Blood Negative /uL (Negative) Urine Nitrite Negative (Negative) Urine Bilirubin Negative (Negative) Urine Urobilinogen Normal mg/dL (Negative) Urine Leukocyte Esterase 2+ /uL (Negative) Urine RBC 1 /hpf (0 - 4) Urine Microscopic WBC 13 /HPF (0-5) H Urine Squamous Epithelial Cells Few /hpf (<5) Urine Bacteria None seen /hpf (None Seen) Urine Glucose Normal mg/dL (Normal) Labs and/or images reviewed: Labs reviewed by me, Image(s) reviewed by me Assessment/Plan Assessment/Plan Intractable abdominal pain: CT abdomen pelvis without contrast negative labs normal Slightly elevated Elevated liver enzymes UTI: Urine cultures Rocephin Bradycardia Hypertensive urgency blood pressure medications Generalized weakness Plan discussed with: Patient Date of Service: Apr 30, 2025 Billing Provider: LIZBETH WELLS MD Common Visit Codes: [id number] INP/OBS CARE(HIGH) LIZBETH WELLS MD Apr 30, 2025 08:39
[2025-04-30 09:00] VITALS: BP 128/67; PULSE 52; RESP 20; TEMP 97.8; O2SAT 95
[2025-04-30] MEDS ORDERED: LEVO500T91 PO (09:16)
--- NOTE | 2025-04-30 09:18 | DVHDS2 ---
Discharge Summary Date of Admission Apr 29, 2025 at 00:30 Date of Discharge: Apr 30, 2025 Admitting Diagnosis Abdominal pain nausea vomiting Wounds: None Labs/Diagnostic Data: Laboratory Results Test 04/30/25 07:22 04/28/25 20:15 04/28/25 13:19 White Blood Count 4.1 10^3/uL (4.4-10.8) Red Blood Count 4.42 10^6/uL (4.0-5.20) Hemoglobin 11.9 g/dL (12.2-16.2) Hematocrit 36.4 % (36.0-46.0) Mean Corpuscular Volume 82.2 fL (80.0-100.0) Mean Corpuscular Hemoglobin 26.9 pg (28.0-32.0) Mean Corpuscular Hemoglobin Concent 32.8 g/dL (32.0-36.0) Red Cell Distribution Width 16.5 % (11.8-14.3) Platelet Count 256 10^3/uL (140-450) Mean Platelet Volume 8.0 fL (6.9-10.8) Neutrophils (%) (Auto) 48.8 % (37.0-80.0) Lymphocytes (%) (Auto) 38.0 % (10.0-50.0) Monocytes (%) (Auto) 7.4 % (0.0-12.0) Eosinophils (%) (Auto) 4.8 % (0.0-7.0) Basophils (%) (Auto) 1.0 % (0.0-2.0) Neutrophils # (Auto) 2.0 10 ^3/uL (1.6-8.6) Lymphocytes # (Auto) 1.5 10 ^3/uL (0.4-5.4) Monocytes # (Auto) 0.3 10 ^3/uL (0-1.3) Eosinophils # (Auto) 0.2 10 ^3/uL (0-0.8) Basophils # (Auto) 0 10 ^3/uL (0-0.2) Nucleated Red Blood Cells 0.1 % Sodium Level 144 mmol/L (136-145) Potassium Level 4.2 mmol/L (3.5-5.1) Chloride Level 110 mmol/L (98-107) Carbon Dioxide Level 24 mmol/L (20-31) Anion Gap 10 (5-15) Blood Urea Nitrogen 5 mg/dL (9-23) Creatinine 0.76 mg/dL (0.550-1.02) Glomerular Filtration Rate Calc 78 mL/min (>90) BUN/Creatinine Ratio 6.6 (10.0-20.0) Serum Glucose 84 mg/dL (74-106) Calcium Level 8.8 mg/dL (8.7-10.4) Total Bilirubin 0.2 mg/dL (0.2-1.0) Aspartate Amino Transferase (AST) 31 U/L (13-40) Alanine Aminotransferase (ALT) 33 U/L (7-40) Alkaline Phosphatase 157 U/L (46-116) Total Protein 6.3 g/dL (5.7-8.2) Albumin 3.7 g/dL (3.2-4.8) Urine Color Light-yellow (Yellow) Urine Clarity Clear (Clear) Urine pH 5.0 (5.0-9.0) Urine Specific [place] 1.012 (1.001-1.035) Urine Protein Negative (Negative) Urine Ketones Negative (Negative) Urine Blood Negative /uL (Negative) Urine Nitrite Negative (Negative) Urine Bilirubin Negative (Negative) Urine Urobilinogen Normal mg/dL (Negative) Urine Leukocyte Esterase 2+ /uL (Negative) Urine RBC 1 /hpf (0 - 4) Urine Microscopic WBC 13 /HPF (0-5) Urine Squamous Epithelial Cells Few /hpf (<5) Urine Bacteria None seen /hpf (None Seen) Urine Glucose Normal mg/dL (Normal) Lipase 31 U/L (12-53) Other Laboratory Tests 04/30/25 07:22 Brief Hx & Hospital Course: 84-year-old female with a history of hypertension came in complaining generalized weakness and abdominal pain with nausea and vomiting CT abdomen pelvis without contrast negative all labs were normal slightly elevated liver enzymes mild UTI treated with Rocephin patient was high controlled with the medications. The patient is afebrile and stable vital signs discharged home. Prescription for Levaquin transmitted to pharmacy for UTI Consults/Reason for consult None Operations or Procedures CT abdomen pelvis without contrast Condition at Discharge: Fair Final Diagnosis/Problems List Intractable abdominal pain: CT abdomen pelvis without contrast negative labs normal Slightly elevated Elevated liver enzymes UTI: Urine cultures Rocephin Bradycardia Hypertensive urgency blood pressure medications Generalized weakness Discharge Disposition: Home Discharge Instruct/Medications Diet: See Comment Activity: Light activity Follow Up/Referral: Follow up with your primary dr Medications: none Scheduled Albuterol Sulfate (Ventolin Mdi), 2 PUFF IN PRN, (Reported) Levofloxacin Hemihydrate (Levaquin 500 Mg), 1 TAB PO DAILY Discharge Statement: "Patient was advised to return to the ER or call 911 if any headaches, dizziness, shortness of breath, chest pain, abdominal pain, bleeding, fevers, or worsening of medical condition. Patient was counseled about treatment plan, medications, possible side effects, patientverbalized understanding. All questions were answered to the best of my ability. This discharge took greater then 30 minutes in planning, reviewing documentation, counseling the patient, and discussing with other team members." ASSESSMENT ASSESSMENT Hospital Course Improved Assessment Intractable abdominal pain: CT abdomen pelvis without contrast negative labs normal Slightly elevated Elevated liver enzymes UTI: Urine cultures Rocephin Bradycardia Hypertensive urgency blood pressure medications Generalized weakness Date of Service: Apr 30, 2025 Billing Provider: LIZBETH WELLS MD Common Visit Codes: 78794-GDD/OBS DISCH DAY >30min LIZBETH WELLS MD Apr 30, 2025 09:18
[2025-04-30 10:39] VITALS: BP 128/67; PULSE 52; RESP 20; TEMP 97.8; O2SAT 95
== END 2025-04-30 11:50 | disposition home or self-care (01) | DRG 690 ==
LOC: ER 12:29 → OVERFLOW 04-29 00:30 → TELE-EAST 04-29 03:52
PROVIDERS: ADMIT Family Medicine; ATTEND Family Medicine
DX: N39.0 Urinary tract infection, site not specified (principal); I16.0 Hypertensive urgency; I10 Essential (primary) hypertension; J44.9 Chronic obstructive pulmonary disease, unspecified; R00.1 Bradycardia, unspecified; R74.8 Abnormal levels of other serum enzymes; Z79.899 Other long term (current) drug therapy; Z90.49 Acquired absence of other specified parts of digestive tract
CPT/HCPCS: 36415; 74176; 80053; 81001; 83690; 85025; 87086; 93005; 96374; 96375; G0378; J2405; J2470